=== PATIENT | male | born 1980 | race Hispanic/Latino ===

== ENCOUNTER 2017-12-07 20:50 | Emergency (ER) | payer SELFPAY | END 2017-12-07 21:00 | disposition left against medical advice (07) | LOC: ER 20:50 | DX: H57.12 Ocular pain, left eye (principal) ==

== ENCOUNTER 2024-02-16 11:48 | Inpatient (IN) | payer SELFPAY ==
[~2024-02-16] VITALS: Ht 177.8 cm; Wt 91.0 kg
[~2024-02-16 11:48] MED LIST: CLEOCIN HCL300 MG PO; IBUPROFEN800 MG PO
[2024-02-16 11:59] VITALS: TEMP 98.4
[2024-02-16] MEDS ORDERED: PANTOPRAZOLE SOD 40 MG TABEC PO ONE (12:15)
[2024-02-16] MEDS: ONDANSETRON HCL INJ 2MG/ML 2ML 2 MG/ML VIAL IV STA (12:32)
[2024-02-16] MEDS: SODIUM CHLORIDE 0.9% 1000ML 1,000 ML IV ONE (12:32)
[2024-02-16 12:42] LABS: BASOPHILS % 0.7 % (0.0-1.0); EOSINOPHILS # (AUTO) 0.1 (0.0-0.4); EOSINOPHILS % 2.5 % (0.0-6.0); LYMPHOCYTES # (AUTO) 1.8 (1.0-3.2); LYMPHOCYTES % 31.7 % (18.0-39.1); MEAN CORPUSCULAR HEMOGLOBIN 31.2 pg (28-32); MEAN CORPUSCULAR HGB CONC 34.8 g/dL (31-35); MEAN CORPUSCULAR VOLUME 89.7 fL (81-99); MONOCYTES # (AUTO) 0.5 (0.2-0.8); MONOCYTES % 9.2 % (4.4-11.3); NEUTROPHILS # (AUTO) 3.1 (2.1-6.9); NEUTROPHILS % 55.5 % (38.7-80.0); PLATELET COUNT 194 x10e3/uL (140-360); RED BLOOD COUNT 5.13 x10e6/uL (4.3-5.7); RED CELL DISTRIBUTION WIDTH 12.1 % (11.7-14.4); WHITE BLOOD COUNT 5.56 x10e3/uL (4.8-10.8)
[2024-02-16 12:43] LABS: INR 0.89; PROTHROMBIN TIME 12.5 seconds (11.9-14.5)
[2024-02-16 12:44] LABS: PARTIAL THROMBOPLASTIN TIME 29.2 seconds (23.8-35.5)
[2024-02-16 12:54] LABS: ALBUMIN 3.9 g/dL (3.5-5.0); ALBUMIN/GLOBULIN RATIO 1.1 (0.8-2.0); ANION GAP 14.8 mmol/L (8-16); BILIRUBIN,TOTAL 0.4 mg/dL (0.2-1.2); CALCIUM 8.9 mg/dL (8.4-10.2); CREATININE, SERUM 0.92 mg/dL (0.72-1.25); POTASSIUM 3.8 mmol/L (3.5-5.1); TOTAL PROTEIN 7.4 g/dL (6.5-8.1)
[2024-02-16] MEDS ORDERED: IOPAMIDOL 370 MG/ML 100 ML INFUS..BTL INJ ONE (13:10)
[2024-02-16] MEDS ORDERED: ONDANSETRON HCL INJ 2MG/ML 2ML 2 MG/ML VIAL IV PRN (14:30)
[2024-02-16] MEDS ORDERED: Morphine 4mg INJECTION 4 MG/ML INJ IV PRN ×2 (14:30→18:30)
[2024-02-16 14:45] VITALS: PULSE 78; RESP 16
[2024-02-16] MEDS: Morphine 4mg INJECTION 4 MG/ML INJ IV ONE (15:08)
[2024-02-16 15:20] VITALS: BP 133/95; PULSE 69; RESP 17; TEMP 98.3; O2SAT 100
[2024-02-16 15:33] VITALS: BP 133/95; PULSE 69; RESP 17; TEMP 98.3; O2SAT 100
[2024-02-16] MEDS: SODIUM CHLORIDE 0.9% 1000ML 1,000 ML IV SCH ×2 (16:00→17:00)
[2024-02-16] MEDS ORDERED: DOCUSATE SODIUM 100 MG CAP PO PRN (16:15)
[2024-02-16] MEDS ORDERED: HYDRALAZINE HCL 20 MG/ML VIAL IV PRN (16:15)
[2024-02-16] MEDS ORDERED: ACETAMINOPHEN 325 MG TAB PO PRN (16:15)
[2024-02-16] MEDS ORDERED: LIDOCAINE 4% PATCH TP PRN (16:15)
[2024-02-16] MEDS ORDERED: DIPHENHYDRAMINE HCL 25 MG CAP PO PRN (16:15)
[2024-02-16] MEDS ORDERED: BENZONATATE 100 MG CAP PO PRN (16:15)
[2024-02-16] MEDS ORDERED: MELATONIN 5 MG TABLET PO PRN (16:15)
[2024-02-16] MEDS ORDERED: SIMETHICONE 80 MG CHEW PO PRN (16:15)
[2024-02-16] MEDS ORDERED: DEXTROSE 50% SYRINGE 50 ML IV PRN (16:15)
[2024-02-16] MEDS ORDERED: ALBUTEROL/IPRATROPIUM 3 ML NEB NEB PRN (16:15)
[2024-02-16] MEDS ORDERED: POTASSIUM CHLORIDE 20 MEQ TAB CR PO PRN (16:15)
[2024-02-16 16:56] LABS: HEMATOCRIT 45.4 % (38.2-49.6); HEMOGLOBIN 15.6 g/dL (14.0-18.0)
[2024-02-16 18:41] LABS: AMPHETAMINES SCREEN,URINE NEGATIVE (NEGATIVE); BENZODIAZEPINES SCREEN,URINE NEGATIVE (NEGATIVE); CANNABINOIDS SCREEN,URINE NEGATIVE (NEGATIVE); METHADONE SCREEN, URINE NEGATIVE (NEGATIVE); OPIATES SCREEN,URINE NEGATIVE (NEGATIVE); PHENCYCLIDINE SCREEN,URINE NEGATIVE (NEGATIVE)
[2024-02-16 20:00] VITALS: BP 128/92; PULSE 74; RESP 18; TEMP 98; O2SAT 100
[2024-02-17] VITALS: BP 115/72; PULSE 70; RESP 17; TEMP 97.4; O2SAT 99
[2024-02-17 04:00] VITALS: BP 135/94; PULSE 74; RESP 17; TEMP 97.8; O2SAT 100
[2024-02-17 05:29] LABS: BASOPHILS % 0.8 % (0.0-1.0); EOSINOPHILS # (AUTO) 0.2 (0.0-0.4); EOSINOPHILS % 3.2 % (0.0-6.0); HEMATOCRIT 42.3 % (38.2-49.6); HEMOGLOBIN 14.6 g/dL (14.0-18.0); LYMPHOCYTES # (AUTO) 2.1 (1.0-3.2); MEAN CORPUSCULAR HEMOGLOBIN 31.4 pg (28-32); MEAN CORPUSCULAR HGB CONC 34.5 g/dL (31-35); MONOCYTES # (AUTO) 0.6 (0.2-0.8); MONOCYTES % 10.4 % (4.4-11.3); NEUTROPHILS # (AUTO) 2.4 (2.1-6.9); NEUTROPHILS % 45.4 % (38.7-80.0); PLATELET COUNT 169 x10e3/uL (140-360); RED BLOOD COUNT 4.65 x10e6/uL (4.3-5.7); RED CELL DISTRIBUTION WIDTH 12.1 % (11.7-14.4); WHITE BLOOD COUNT 5.28 x10e3/uL (4.8-10.8)
[2024-02-17 05:53] LABS: ALBUMIN 3.4 g/dL (3.5-5.0); ALBUMIN/GLOBULIN RATIO 1.1 (0.8-2.0); ANION GAP 11.7 mmol/L (8-16); BILIRUBIN,TOTAL 0.3 mg/dL (0.2-1.2); CALCIUM 8.2 mg/dL (8.4-10.2); CREATININE, SERUM 0.91 mg/dL (0.72-1.25); POTASSIUM 3.7 mmol/L (3.5-5.1); TOTAL PROTEIN 6.4 g/dL (6.5-8.1)
[2024-02-17 08:11] VITALS: BP 135/94; PULSE 74; RESP 17; TEMP 97.8; O2SAT 100
[2024-02-17 08:16] VITALS: BP_SYST 133; BP_DIAS 68; BP_DIAS 83; PULSE 71; PULSE 78; RESP 17; RESP 18; TEMP 97.8; TEMP 98.7; O2SAT 100; O2SAT 96
[2024-02-17 12:15] VITALS: BP 147/97; PULSE 73; RESP 16; TEMP 97.7; O2SAT 99
[2024-02-17] MEDS ORDERED: SUCRALFATE 1 GM/10 ML SUSP NG SCH (16:30)
[2024-02-17] MEDS ORDERED: SUCRALFATE 1 GM TAB PO SCH (16:30)
[2024-02-17 21:22] LABS: HEPATITIS B SURFACE AG (P) NONREACTIVE; HEPATITIS C ANTIBODY NONREACTIVE
== END 2024-02-17 16:30 | disposition left against medical advice (07) | DRG 379 ==
LOC: ER 11:54 → ERHOLD 14:25 → MED/SURG2 15:27
PROVIDERS: ADMIT Internal Medicine; ATTEND Internal Medicine
DX: K25.4 Chronic or unspecified gastric ulcer with hemorrhage (principal); K29.71 Gastritis, unspecified, with bleeding; K76.0 Fatty (change of) liver, not elsewhere classified; R79.89 Other specified abnormal findings of blood chemistry; F10.20 Alcohol dependence, uncomplicated; F14.10 Cocaine abuse, uncomplicated; F19.10 Other psychoactive substance abuse, uncomplicated; F17.210 Nicotine dependence, cigarettes, uncomplicated
CPT/HCPCS: 36415; 74177; 80053; 80307; 80320; 83690; 85014; 85018; 85025; 85610; 85730; 99284; J2270; J2405; J2470; J7030; Q9967